=== PATIENT | male | born 1955 | race African-American/Black ===

== ENCOUNTER 2018-03-11 02:10 | Inpatient (IN) | payer BC, OTHER ==
[2018-03-11 02:31] LABS: ADD MAN DIFF? NO
[2018-03-11 02:32] LABS: ABNORMAL IP MESSAGE 1; BASOPHILS % 0.5 % (0.0-2.0); EOSINOPHILS # 0.1 10^3/ul (0.0-0.5); EOSINOPHILS % 0.8 % (0.0-7.0); HEMATOCRIT 41.1 % (42.0-52.0); HEMOGLOBIN 13.9 g/dl (14.0-18.0); LYMPHOCYTES # 3.2 10^3/ul (0.8-2.9); LYMPHOCYTES % 36.8 % (15.0-51.0); MEAN CORPUSCULAR HEMOGLOBIN 32.1 pg (29.0-33.0); MEAN CORPUSCULAR HGB CONC 33.8 g/dl (32.0-37.0); MEAN CORPUSCULAR VOLUME 94.9 fl (82.0-101.0); MEAN PLATELET VOLUME 12.3 fl (7.4-10.4); MONOCYTE # 0.4 10^3/ul (0.3-0.9); MONOCYTES % 4.4 % (0.0-11.0); NEUTROPHIL # 4.5 10^3/ul (1.6-7.5); NEUTROPHILS % 51.4 % (39.0-77.0); PLATELET COUNT 82 10^3/UL (140-415); POSITIVE DIFF @See below; RED BLOOD COUNT 4.33 10^6/ul (4.70-6.10); RED CELL DISTRIBUTION WIDTH 13.9 % (11.5-14.5)
[2018-03-11 02:32] LABS: WHITE BLOOD COUNT 8.7 10^3/ul (4.8-10.8)
[2018-03-11] MEDS: ASPIRIN 300 MG SUPP PR (02:34)
[2018-03-11] MEDS: AMIODARONE 150MG/D5W BOLUS 100 ML IV (02:34)
[2018-03-11 02:50] LABS: ANION GAP 23 (8-16); BLOOD UREA NITROGEN 19 mg/dl (7-20); CARBON DIOXIDE 21 mmol/L (21-31); CHLORIDE 105 mmol/L (97-110); CREATININE 1.29 mg/dl (0.61-1.24); GLUCOSE 195 mg/dl (70-220); POTASSIUM 4.6 mmol/L (3.5-5.1); SODIUM 144 mmol/L (135-144)
[2018-03-11 03:01] LABS: TROPONIN-I 0.014 ng/ml (0.00-0.12)
[2018-03-11 03:05] LABS: AADO2 Arterial 541.7 mmHg (7.0-24.0); Allen Test ACCEPTAB; Arterial Base Excess -3.7 mmol/L (-3.0-3); Arterial Blood Gas Oxygen Sat 97.2 mmHG (95.0-98.0); Arterial COHb 0.4 % (0.0-3.0); Arterial Fraction of Oxyhgb 96.5 % (93.0-99.0); Arterial HCO3 23.6 mmol/L (22.0-26.0); Arterial MetHb 0.3 % (0.0-1.5); Arterial Total Hemglobin 15.1 g/dl (12.0-18.0); Arterial pCO2 51.5 mmhg (35-45); MODE VENT - AC; Site Right Radial
[2018-03-11] MEDS: SODIUM CHLORIDE 0.9% 500 ML BAG IV* (03:16)
[2018-03-11 03:17] LABS: MAGNESIUM 2.2 mg/dl (1.7-2.5)
[2018-03-11 03:17] LABS: PHOSPHORUS 6.9 mg/dl (2.5-4.9)
[2018-03-11 03:32] LABS: INR 1.08; PARTIAL THROMBOPLASTIN TIME 22.1 Sec (25.0-35.0); PROTIME 14.1 Sec (11.9-14.9); PT RATIO 1.1
[2018-03-11] MEDS: VECURONIUM 100 MG in DEXTROSE 5% 100 ML IV ×2 (04:45→21:48)
[2018-03-11 04:49] LABS: ANISOCYTOSIS 1+ (0-0); BASOPHILS % (M) 1 % (0-2); EOSINOPHILS % (M) 1 % (0-7); ERYTHROBLAST% (NRBC) (M) 2 % (0-0); GIANT THROMBO% (M) 1 % (0-0); LYMPHOCYTES #M 2.6 10^3/ul (0.8-2.9); LYMPHOCYTES % (M) 30 % (15-51); METAMYELOCYTES %M 1 % (0-0); MYELOCYTES #M 0.4 10^3/ul (0.0-0.0); MYELOCYTES % (M) 5 % (0-0); PLATELET ESTIMATE NORMAL; POIKILOCYTOSIS 2+ (0-0); SEGMENTED NEUTROPHILS (M) % 62 % (39-77)
[2018-03-11] MEDS: MIDAZOLAM (DRIP) 50 mg/50 mL 50 ML IV ×4 (04:50→20:50)
[2018-03-11] MEDS: FENTAnyl 50 MCG/ML VIAL IV (05:03)
[2018-03-11] MEDS: SOD CHLORIDE 0.9% 1,000 ML IV ×3 (05:52→19:23)
[2018-03-11 06:21] LABS: LACTIC ACID 1.9 mmol/L (0.5-2.0)
[2018-03-11] MEDS: SOD CHLORIDE 0.9% 100 ML (06:27)
[2018-03-11] MEDS: IOHEXOL 300MG/ML 150 ML BTL (06:27)
[2018-03-11] MEDS ORDERED: MIDAZOLAM (DRIP) 50 mg/50 mL 50 ML IV (06:30)
[2018-03-11] MEDS ORDERED: DEXTROSE 50% 50 ML SYRINGE IV (07:00)
[2018-03-11] MEDS ORDERED: AMIODARONE 150 MG INJ (07:00)
[2018-03-11] MEDS: ACCU-CHEK XX ×18 (07:42→23:44)
[2018-03-11] MEDS: INSULIN HUMAN REGULAR 100 UNIT in SOD CHLORIDE 0.9% 99 ML IV (08:27)
[2018-03-11] MEDS ORDERED: HEPARIN 1000 UNITS/ML 10 ML INJ IV (08:30)
[2018-03-11 08:43] LABS: AADO2 Arterial 283.7 mmHg (7.0-24.0); Allen Test ACCEPTAB; Arterial Base Excess -4.7 mmol/L (-3.0-3); Arterial Blood Gas Oxygen Sat 99.4 mmHG (95.0-98.0); Arterial COHb 0.3 % (0.0-3.0); Arterial Fraction of Oxyhgb 98.9 % (93.0-99.0); Arterial HCO3 20.8 mmol/L (22.0-26.0); Arterial MetHb 0.2 % (0.0-1.5); Arterial Total Hemglobin 16.1 g/dl (12.0-18.0); MODE VENT - AC; Site Right Radial; Temperature 34.6 C
[2018-03-11] MEDS ORDERED: ACETAMINOPHEN 650 MG SUPP PR (09:00)
[2018-03-11] MEDS ORDERED: MEPERIDINE 25 MG INJ IV (09:00)
[2018-03-11] MEDS: PANTOPRAZOLE 40 MG INJ IV (09:16)
[2018-03-11 10:12] LABS: ADD MAN DIFF? NO
[2018-03-11 10:19] LABS: BASOPHILS % 0.2 % (0.0-2.0); EOSINOPHILS # 0.1 10^3/ul (0.0-0.5); EOSINOPHILS % 0.3 % (0.0-7.0); HEMATOCRIT 47.5 % (42.0-52.0); HEMOGLOBIN 15.7 g/dl (14.0-18.0); LYMPHOCYTES # 0.9 10^3/ul (0.8-2.9); LYMPHOCYTES % 5.1 % (15.0-51.0); MEAN CORPUSCULAR HEMOGLOBIN 31.7 pg (29.0-33.0); MEAN CORPUSCULAR HGB CONC 33.1 g/dl (32.0-37.0); MEAN CORPUSCULAR VOLUME 95.8 fl (82.0-101.0); MEAN PLATELET VOLUME 11.4 fl (7.4-10.4); MONOCYTE # 0.9 10^3/ul (0.3-0.9); NEUTROPHIL # 15.4 10^3/ul (1.6-7.5); PLATELET COUNT 273 10^3/UL (140-415); RED BLOOD COUNT 4.96 10^6/ul (4.70-6.10)
[2018-03-11 10:19] LABS: WHITE BLOOD COUNT 17.5 10^3/ul (4.8-10.8)
[2018-03-11] MEDS: FENTAnyl (DRIP) 1000 mcg/100mL 100 ML IV (10:31)
[2018-03-11 10:36] LABS: AMYLASE 56 U/L (11-123); ANION GAP 17 (8-16); BLOOD UREA NITROGEN 28 mg/dl (7-20); CALCIUM 9.6 mg/dl (8.4-10.2); CARBON DIOXIDE 26 mmol/L (21-31); CHLORIDE 109 mmol/L (97-110); GLUCOSE 173 mg/dl (70-220); LIPASE 53 U/L (23-300); MAGNESIUM 2.2 mg/dl (1.7-2.5); PHOSPHORUS 2.5 mg/dl (2.5-4.9); POTASSIUM 4.8 mmol/L (3.5-5.1); SODIUM 147 mmol/L (135-144)
[2018-03-11 10:40] LABS: INR 1.09; PROTIME 14.2 Sec (11.9-14.9); PT RATIO 1.1
[2018-03-11 10:41] LABS: CREATINE KINASE 307 IU/L (23-200); PARTIAL THROMBOPLASTIN TIME 27.1 Sec (25.0-35.0)
[2018-03-11 10:53] LABS: CK INDEX 2.9
[2018-03-11 10:59] LABS: CK-MB 8.75 ng/ml (0.0-2.4)
[2018-03-11] MEDS: HEPARIN 1000 UNITS/ML 10 ML INJ IV (11:31)
[2018-03-11] MEDS: HEPARIN 25000 UNITS/250 ML 250 ML IV (11:31)
[2018-03-11 14:22] LABS: LACTIC ACID 1.8 mmol/L (0.5-2.0)
[2018-03-11 14:24] LABS: CREATINE KINASE 321 IU/L (23-200)
[2018-03-11 14:35] LABS: CK INDEX 4.2
[2018-03-11 14:37] LABS: TROPONIN-I 0.994 ng/ml (0.00-0.12)
[2018-03-11 14:59] LABS: AADO2 Arterial 167.1 mmHg (7.0-24.0); Allen Test ACCEPTAB; Arterial Base Excess -5.1 mmol/L (-3.0-3); Arterial Blood Gas Oxygen Sat 98.9 mmHG (95.0-98.0); Arterial COHb 0.3 % (0.0-3.0); Arterial Fraction of Oxyhgb 98.4 % (93.0-99.0); Arterial HCO3 19.3 mmol/L (22.0-26.0); Arterial MetHb 0.2 % (0.0-1.5); Arterial Total Hemglobin 15.9 g/dl (12.0-18.0); MODE VENT - AC; Site Right Radial
[2018-03-11] MEDS: ARTIFICIAL TEARS 15 ML OPH BOTH EYES ×3 (15:36→23:46)
[2018-03-11] MEDS: OCULAR LUBRICANT 3.5 GM OPH OINT BOTH EYES ×3 (15:36→23:46)
[2018-03-11 15:52] LABS: ADD MAN DIFF? NO
[2018-03-11 15:54] LABS: BASOPHILS % 0.1 % (0.0-2.0); EOSINOPHILS % 0.3 % (0.0-7.0); HEMATOCRIT 44.8 % (42.0-52.0); HEMOGLOBIN 15.3 g/dl (14.0-18.0); LYMPHOCYTES # 0.9 10^3/ul (0.8-2.9); LYMPHOCYTES % 6.1 % (15.0-51.0); MEAN CORPUSCULAR HEMOGLOBIN 31.9 pg (29.0-33.0); MEAN CORPUSCULAR HGB CONC 34.2 g/dl (32.0-37.0); MEAN CORPUSCULAR VOLUME 93.5 fl (82.0-101.0); MONOCYTE # 0.6 10^3/ul (0.3-0.9); MONOCYTES % 3.8 % (0.0-11.0); NEUTROPHIL # 13.4 10^3/ul (1.6-7.5); NEUTROPHILS % 89.1 % (39.0-77.0); PLATELET COUNT 226 10^3/UL (140-415); RED BLOOD COUNT 4.79 10^6/ul (4.70-6.10)
[2018-03-11 16:14] LABS: AMYLASE 61 U/L (11-123); ANION GAP 17 (8-16); BLOOD UREA NITROGEN 27 mg/dl (7-20); CALCIUM 9.2 mg/dl (8.4-10.2); CARBON DIOXIDE 23 mmol/L (21-31); CHLORIDE 109 mmol/L (97-110); CREATININE 1.23 mg/dl (0.61-1.24); GLUCOSE 135 mg/dl (70-220); LIPASE 68 U/L (23-300); POTASSIUM 3.8 mmol/L (3.5-5.1); SODIUM 145 mmol/L (135-144)
[2018-03-11 16:19] LABS: INR 1.16; PT RATIO 1.2
[2018-03-11 16:51] LABS: PARTIAL THROMBOPLASTIN TIME 90.8 Sec (25.0-35.0)
[2018-03-11] MEDS: DEXTROSE 5%-0.45% NACL 1,000 ML IV (19:48)
[2018-03-11] MEDS ORDERED: PROPOFOL 100 ML (20:36)
[2018-03-11 20:48] LABS: AADO2 Arterial 84.9 mmHg (7.0-24.0); Allen Test ACCEPTAB; Arterial Base Excess -3.5 mmol/L (-3.0-3); Arterial Blood Gas Oxygen Sat 96.8 mmHG (95.0-98.0); Arterial COHb 0.4 % (0.0-3.0); Arterial Fraction of Oxyhgb 96.2 % (93.0-99.0); Arterial HCO3 22.8 mmol/L (22.0-26.0); Arterial MetHb 0.2 % (0.0-1.5); Arterial Total Hemglobin 16.3 g/dl (12.0-18.0); Arterial pCO2 40.3 mmhg (35-45); MODE VENT - AC/VC+; Site Right Radial; Temperature 34.2 C
[2018-03-11] MEDS: PROPOFOL 100 ML IV (20:51)
[2018-03-11] MEDS: MEPERIDINE 25 MG INJ IV (21:30)
[2018-03-11] MEDS: NORepinephrine 8MG/250 ML (PMX 250 ML IV (21:33)
[2018-03-11 21:38] LABS: ADD MAN DIFF? NO
[2018-03-11 21:41] LABS: BASOPHILS % 0.1 % (0.0-2.0); EOSINOPHILS % 0.1 % (0.0-7.0); HEMATOCRIT 43.2 % (42.0-52.0); HEMOGLOBIN 14.8 g/dl (14.0-18.0); LYMPHOCYTES # 0.6 10^3/ul (0.8-2.9); LYMPHOCYTES % 4.7 % (15.0-51.0); MEAN CORPUSCULAR HEMOGLOBIN 32.2 pg (29.0-33.0); MEAN CORPUSCULAR HGB CONC 34.3 g/dl (32.0-37.0); MEAN CORPUSCULAR VOLUME 93.9 fl (82.0-101.0); MEAN PLATELET VOLUME 11.1 fl (7.4-10.4); MONOCYTE # 0.4 10^3/ul (0.3-0.9); MONOCYTES % 2.7 % (0.0-11.0); NEUTROPHIL # 12.5 10^3/ul (1.6-7.5); PLATELET COUNT 205 10^3/UL (140-415); RED CELL DISTRIBUTION WIDTH 14.1 % (11.5-14.5)
[2018-03-11 21:41] LABS: WHITE BLOOD COUNT 13.6 10^3/ul (4.8-10.8)
[2018-03-11 22:01] LABS: AMYLASE 53 U/L (11-123); ANION GAP 13 (8-16); BLOOD UREA NITROGEN 27 mg/dl (7-20); CALCIUM 8.9 mg/dl (8.4-10.2); CARBON DIOXIDE 27 mmol/L (21-31); CHLORIDE 109 mmol/L (97-110); CREATININE 1.08 mg/dl (0.61-1.24); GLUCOSE 147 mg/dl (70-220); INR 1.07; LIPASE 23 U/L (23-300); MAGNESIUM 1.9 mg/dl (1.7-2.5); PHOSPHORUS 3.9 mg/dl (2.5-4.9); POTASSIUM 4.1 mmol/L (3.5-5.1); PT RATIO 1.1; SODIUM 145 mmol/L (135-144)
[2018-03-11 22:02] LABS: PARTIAL THROMBOPLASTIN TIME 26.1 Sec (25.0-35.0)
[2018-03-12] MEDS: FENTAnyl (DRIP) 1000 mcg/100mL 100 ML IV ×3 (00:52→22:12)
[2018-03-12] MEDS: ACCU-CHEK XX ×23 (00:59→23:41)
[2018-03-12 01:05] LABS: CREATINE KINASE 254 IU/L (23-200)
[2018-03-12 01:18] LABS: CK INDEX 5.6
[2018-03-12 01:19] LABS: TROPONIN-I 0.367 ng/ml (0.00-0.12)
[2018-03-12] MEDS: PROPOFOL 100 ML IV ×2 (02:18→21:25)
[2018-03-12] MEDS: MIDAZOLAM (DRIP) 50 mg/50 mL 50 ML IV ×5 (02:35→19:21)
[2018-03-12 03:29] LABS: AADO2 Arterial 95.3 mmHg (7.0-24.0); Allen Test ACCEPTAB; Arterial Base Excess -1.8 mmol/L (-3.0-3); Arterial Blood Gas Oxygen Sat 97.4 mmHG (95.0-98.0); Arterial COHb 0.4 % (0.0-3.0); Arterial Fraction of Oxyhgb 96.9 % (93.0-99.0); Arterial HCO3 23.7 mmol/L (22.0-26.0); Arterial MetHb 0.1 % (0.0-1.5); Arterial Total Hemglobin 15.2 g/dl (12.0-18.0); MODE VENT - AC/VC+; Site Right Radial; Temperature 32.9 C
[2018-03-12 04:01] LABS: ADD MAN DIFF? NO
[2018-03-12 04:09] LABS: WHITE BLOOD COUNT 17.3 10^3/ul (4.8-10.8)
[2018-03-12 04:09] LABS: BASOPHILS % 0.2 % (0.0-2.0); EOSINOPHILS # 0.2 10^3/ul (0.0-0.5); EOSINOPHILS % 1.1 % (0.0-7.0); HEMATOCRIT 41.7 % (42.0-52.0); HEMOGLOBIN 14.4 g/dl (14.0-18.0); LYMPHOCYTES # 1.3 10^3/ul (0.8-2.9); LYMPHOCYTES % 7.7 % (15.0-51.0); MEAN CORPUSCULAR HEMOGLOBIN 32.3 pg (29.0-33.0); MEAN CORPUSCULAR HGB CONC 34.5 g/dl (32.0-37.0); MEAN CORPUSCULAR VOLUME 93.5 fl (82.0-101.0); MEAN PLATELET VOLUME 11.2 fl (7.4-10.4); MONOCYTE # 0.7 10^3/ul (0.3-0.9); NEUTROPHILS % 86.4 % (39.0-77.0); PLATELET COUNT 238 10^3/UL (140-415); RED BLOOD COUNT 4.46 10^6/ul (4.70-6.10)
[2018-03-12 04:27] LABS: INR 1.09; PROTIME 14.3 Sec (11.9-14.9); PT RATIO 1.1
[2018-03-12 04:28] LABS: PARTIAL THROMBOPLASTIN TIME 27.3 Sec (25.0-35.0)
[2018-03-12 04:36] LABS: CREATINE KINASE 249 IU/L (23-200)
[2018-03-12 04:46] LABS: CK INDEX 6.1
[2018-03-12 04:50] LABS: TROPONIN-I 0.328 ng/ml (0.00-0.12)
[2018-03-12] MEDS: MEPERIDINE 25 MG INJ IV (04:50)
[2018-03-12 05:00] LABS: CHOL/HDL RATIO 1.6 RATIO; HDL CHOLESTEROL 56 mg/dl (30-78); LDL CHOLESTEROL,CALCULATED 13 mg/dl; TRIGLYCERIDES 111 mg/dl (0-149)
[2018-03-12 05:00] LABS: CHOLESTEROL 91 mg/dl (100-200)
[2018-03-12 05:01] LABS: ALANINE AMINOTRANSFERASE 105 IU/L (13-69); ALBUMIN 3.4 g/dl (3.3-4.9); ALBUMIN/GLOBULIN RATIO 1.21; ALKALINE PHOSPHATASE 93 IU/L (42-121); ANION GAP 13 (8-16); ASPARTATE AMINO TRANSFERASE 72 IU/L (15-46); BILIRUBIN,INDIRECT 0.8 mg/dl (0-1.1); BILIRUBIN,TOTAL 0.8 mg/dl (0.2-1.3); BLOOD UREA NITROGEN 23 mg/dl (7-20); CALCIUM 9.2 mg/dl (8.4-10.2); CARBON DIOXIDE 25 mmol/L (21-31); CHLORIDE 111 mmol/L (97-110); CREATININE 0.99 mg/dl (0.61-1.24); GLUCOSE 141 mg/dl (70-220); POTASSIUM 4.1 mmol/L (3.5-5.1); SODIUM 145 mmol/L (135-144); TOTAL PROTEIN 6.2 g/dl (6.1-8.1)
[2018-03-12 05:02] LABS: AMYLASE 32 U/L (11-123); LIPASE 22 U/L (23-300)
[2018-03-12 05:02] LABS: PHOSPHORUS 3.7 mg/dl (2.5-4.9)
[2018-03-12 05:07] LABS: B-TYPE NATRIURETIC PEPTIDE 390 PG/ML (0-125)
[2018-03-12 05:15] LABS: FREE T4 (FREE THYROXINE) 1.39 ng/dl (0.78-2.44)
[2018-03-12] MEDS: SOD CHLORIDE 0.9% 500 ML IV (05:25)
[2018-03-12 05:29] LABS: THYROID STIMULATING HORMONE 0.287 MIU/L (0.465-4.680)
[2018-03-12] MEDS: OCULAR LUBRICANT 3.5 GM OPH OINT BOTH EYES ×3 (06:16→17:30)
[2018-03-12] MEDS: PANTOPRAZOLE 40 MG INJ IV (06:16)
[2018-03-12] MEDS: ARTIFICIAL TEARS 15 ML OPH BOTH EYES ×3 (06:17→17:30)
[2018-03-12] MEDS: ACETAMINOPHEN 650 MG SUPP PR ×3 (09:00→21:25)
[2018-03-12] MEDS: ACETAMINOPHEN 650MG/20.3ML CUP PO ×3 (09:00→21:25)
[2018-03-12 09:21] LABS: AADO2 Arterial 86.2 mmHg (7.0-24.0); Allen Test ACCEPTAB; Arterial Base Excess -1.5 mmol/L (-3.0-3); Arterial Blood Gas Oxygen Sat 97.9 mmHG (95.0-98.0); Arterial COHb 0.8 % (0.0-3.0); Arterial HCO3 23.7 mmol/L (22.0-26.0); Arterial MetHb 0.1 % (0.0-1.5); Arterial Total Hemglobin 15.5 g/dl (12.0-18.0); Arterial pCO2 35.8 mmhg (35-45); MODE VENT - AC; Site Left Radial; Temperature 33.4 C
[2018-03-12] MEDS ORDERED: NORepinephrine 8MG/250 ML (PMX 250 ML IV ×2 (09:30)
[2018-03-12] MEDS: ASPIRIN 300 MG SUPP PR (09:53)
[2018-03-12] MEDS: DEXTROSE 5%-0.45% NACL 1,000 ML IV (09:55)
[2018-03-12] MEDS: ENOXAPARIN 40 MG/0.4 ML SYG SC (11:35)
[2018-03-12 11:53] LABS: ADD MAN DIFF? NO
[2018-03-12 11:55] LABS: WHITE BLOOD COUNT 14.2 10^3/ul (4.8-10.8)
[2018-03-12 11:55] LABS: BASOPHILS % 0.2 % (0.0-2.0); EOSINOPHILS # 0.4 10^3/ul (0.0-0.5); EOSINOPHILS % 3.1 % (0.0-7.0); HEMATOCRIT 41.9 % (42.0-52.0); HEMOGLOBIN 14.2 g/dl (14.0-18.0); LYMPHOCYTES # 1.4 10^3/ul (0.8-2.9); LYMPHOCYTES % 10.1 % (15.0-51.0); MEAN CORPUSCULAR HEMOGLOBIN 31.9 pg (29.0-33.0); MEAN CORPUSCULAR HGB CONC 33.9 g/dl (32.0-37.0); MEAN CORPUSCULAR VOLUME 94.2 fl (82.0-101.0); MEAN PLATELET VOLUME 11.1 fl (7.4-10.4); MONOCYTE # 0.6 10^3/ul (0.3-0.9); MONOCYTES % 4.1 % (0.0-11.0); NEUTROPHIL # 11.6 10^3/ul (1.6-7.5); NEUTROPHILS % 81.9 % (39.0-77.0); PLATELET COUNT 203 10^3/UL (140-415); RED BLOOD COUNT 4.45 10^6/ul (4.70-6.10); RED CELL DISTRIBUTION WIDTH 14.3 % (11.5-14.5)
[2018-03-12 12:13] LABS: CREATINE KINASE 209 IU/L (23-200)
[2018-03-12 12:27] LABS: CK INDEX 6.4
[2018-03-12 12:34] LABS: TROPONIN-I 0.218 ng/ml (0.00-0.12)
[2018-03-12 12:50] LABS: INR 1.16; PT RATIO 1.2
[2018-03-12 12:51] LABS: PARTIAL THROMBOPLASTIN TIME 27.9 Sec (25.0-35.0)
[2018-03-12 13:27] LABS: AMYLASE 42 U/L (11-123); ANION GAP 14 (8-16); BLOOD UREA NITROGEN 22 mg/dl (7-20); CALCIUM 8.8 mg/dl (8.4-10.2); CARBON DIOXIDE 25 mmol/L (21-31); CHLORIDE 109 mmol/L (97-110); CREATININE 1.04 mg/dl (0.61-1.24); GLUCOSE 134 mg/dl (70-220); LIPASE 21 U/L (23-300); PHOSPHORUS 3.3 mg/dl (2.5-4.9); SODIUM 144 mmol/L (135-144)
[2018-03-12 14:15] LABS: AADO2 Arterial 85.6 mmHg (7.0-24.0); Allen Test ACCEPTAB; Arterial Base Excess -1.6 mmol/L (-3.0-3); Arterial Blood Gas Oxygen Sat 97.8 mmHG (95.0-98.0); Arterial COHb 0.5 % (0.0-3.0); Arterial Fraction of Oxyhgb 97.2 % (93.0-99.0); Arterial HCO3 23.6 mmol/L (22.0-26.0); Arterial MetHb 0.1 % (0.0-1.5); Arterial Total Hemglobin 14.6 g/dl (12.0-18.0); Arterial pCO2 34.8 mmhg (35-45); MODE VENT - AC; Site Left Radial
[2018-03-12 17:39] LABS: ADD MAN DIFF? NO
[2018-03-12] MEDS: INSULIN HUMAN REGULAR 100 UNIT in SOD CHLORIDE 0.9% 99 ML IV (17:40)
[2018-03-12 17:41] LABS: BASOPHILS % 0.2 % (0.0-2.0); EOSINOPHILS # 0.4 10^3/ul (0.0-0.5); EOSINOPHILS % 3.6 % (0.0-7.0); HEMATOCRIT 39.8 % (42.0-52.0); HEMOGLOBIN 13.4 g/dl (14.0-18.0); LYMPHOCYTES # 1.3 10^3/ul (0.8-2.9); LYMPHOCYTES % 10.9 % (15.0-51.0); MEAN CORPUSCULAR HEMOGLOBIN 31.8 pg (29.0-33.0); MEAN CORPUSCULAR HGB CONC 33.7 g/dl (32.0-37.0); MEAN CORPUSCULAR VOLUME 94.3 fl (82.0-101.0); MEAN PLATELET VOLUME 10.6 fl (7.4-10.4); MONOCYTE # 0.4 10^3/ul (0.3-0.9); MONOCYTES % 3.7 % (0.0-11.0); NEUTROPHIL # 9.6 10^3/ul (1.6-7.5); NEUTROPHILS % 80.8 % (39.0-77.0); PLATELET COUNT 198 10^3/UL (140-415); RED BLOOD COUNT 4.22 10^6/ul (4.70-6.10); RED CELL DISTRIBUTION WIDTH 14.4 % (11.5-14.5)
[2018-03-12 17:41] LABS: WHITE BLOOD COUNT 11.9 10^3/ul (4.8-10.8)
[2018-03-12 18:15] LABS: CREATINE KINASE 198 IU/L (23-200); INR 1.14; PROTIME 14.8 Sec (11.9-14.9); PT RATIO 1.2
[2018-03-12 18:16] LABS: PARTIAL THROMBOPLASTIN TIME 34.4 Sec (25.0-35.0)
[2018-03-12 18:17] LABS: AMYLASE 34 U/L (11-123); ANION GAP 9 (8-16); BLOOD UREA NITROGEN 20 mg/dl (7-20); CALCIUM 8.7 mg/dl (8.4-10.2); CARBON DIOXIDE 27 mmol/L (21-31); CHLORIDE 113 mmol/L (97-110); CREATININE 0.96 mg/dl (0.61-1.24); GLUCOSE 122 mg/dl (70-220); LIPASE 25 U/L (23-300); MAGNESIUM 1.9 mg/dl (1.7-2.5); PHOSPHORUS 3.6 mg/dl (2.5-4.9); POTASSIUM 3.7 mmol/L (3.5-5.1); SODIUM 145 mmol/L (135-144)
[2018-03-12 18:25] LABS: CK INDEX 5.6
[2018-03-12 18:27] LABS: TROPONIN-I 0.166 ng/ml (0.00-0.12)
[2018-03-12] MEDS: MAGNESIUM SULFATE 1 GM/D5W 100 ML IVPB (19:20)
[2018-03-12 20:43] LABS: AADO2 Arterial 84.7 mmHg (7.0-24.0); Allen Test ACCEPTAB; Arterial Base Excess -1.8 mmol/L (-3.0-3); Arterial Blood Gas Oxygen Sat 97.2 mmHG (95.0-98.0); Arterial COHb 0.6 % (0.0-3.0); Arterial Fraction of Oxyhgb 96.4 % (93.0-99.0); Arterial HCO3 23.3 mmol/L (22.0-26.0); Arterial MetHb 0.2 % (0.0-1.5); Arterial Total Hemglobin 14.6 g/dl (12.0-18.0); Arterial pCO2 37.6 mmhg (35-45); MODE VENT - AC; Site Right Radial; Temperature 35.1 C
[2018-03-12] MEDS: VECURONIUM 100 MG in DEXTROSE 5% 100 ML IV (21:34)
[2018-03-12 23:26] LABS: ADD MAN DIFF? NO
[2018-03-12 23:27] LABS: BASOPHILS % 0.1 % (0.0-2.0); EOSINOPHILS # 0.5 10^3/ul (0.0-0.5); EOSINOPHILS % 4.4 % (0.0-7.0); HEMATOCRIT 40.4 % (42.0-52.0); HEMOGLOBIN 13.8 g/dl (14.0-18.0); LYMPHOCYTES # 1.1 10^3/ul (0.8-2.9); LYMPHOCYTES % 10.4 % (15.0-51.0); MEAN CORPUSCULAR HEMOGLOBIN 32.3 pg (29.0-33.0); MEAN CORPUSCULAR HGB CONC 34.2 g/dl (32.0-37.0); MEAN CORPUSCULAR VOLUME 94.6 fl (82.0-101.0); MEAN PLATELET VOLUME 11.3 fl (7.4-10.4); MONOCYTE # 0.5 10^3/ul (0.3-0.9); MONOCYTES % 4.9 % (0.0-11.0); NEUTROPHIL # 8.5 10^3/ul (1.6-7.5); NEUTROPHILS % 79.5 % (39.0-77.0); PLATELET COUNT 202 10^3/UL (140-415); RED BLOOD COUNT 4.27 10^6/ul (4.70-6.10); RED CELL DISTRIBUTION WIDTH 14.6 % (11.5-14.5)
[2018-03-12 23:27] LABS: WHITE BLOOD COUNT 10.7 10^3/ul (4.8-10.8)
[2018-03-12 23:53] LABS: AMYLASE 48 U/L (11-123); ANION GAP 11 (8-16); BLOOD UREA NITROGEN 19 mg/dl (7-20); CALCIUM 8.6 mg/dl (8.4-10.2); CARBON DIOXIDE 28 mmol/L (21-31); CHLORIDE 111 mmol/L (97-110); CREATININE 0.99 mg/dl (0.61-1.24); GLUCOSE 114 mg/dl (70-220); LIPASE 25 U/L (23-300); MAGNESIUM 2.2 mg/dl (1.7-2.5); PHOSPHORUS 3.8 mg/dl (2.5-4.9); POTASSIUM 3.9 mmol/L (3.5-5.1); SODIUM 146 mmol/L (135-144)
[2018-03-12 23:58] LABS: INR 1.11; PARTIAL THROMBOPLASTIN TIME 30.9 Sec (25.0-35.0); PROTIME 14.5 Sec (11.9-14.9); PT RATIO 1.1
[2018-03-13 00:15] LABS: CREATINE KINASE 152 IU/L (23-200)
[2018-03-13] MEDS: ACCU-CHEK XX ×24 (00:21→23:00)
[2018-03-13] MEDS: ARTIFICIAL TEARS 15 ML OPH BOTH EYES ×4 (00:22→17:21)
[2018-03-13] MEDS: OCULAR LUBRICANT 3.5 GM OPH OINT BOTH EYES ×4 (00:22→17:21)
[2018-03-13 00:28] LABS: CK INDEX 6.1
[2018-03-13 00:29] LABS: CK-MB 9.26 ng/ml (0.0-2.4); TROPONIN-I 0.191 ng/ml (0.00-0.12)
[2018-03-13] MEDS: MIDAZOLAM (DRIP) 50 mg/50 mL 50 ML IV ×2 (00:45→06:06)
[2018-03-13] MEDS: DEXTROSE 5%-0.45% NACL 1,000 ML IV ×3 (01:07→22:31)
[2018-03-13] MEDS: DEXTROSE 50% 50 ML SYRINGE IV (02:01)
[2018-03-13] MEDS: ACETAMINOPHEN 650 MG SUPP PR ×4 (03:27→21:00)
[2018-03-13] MEDS: ACETAMINOPHEN 650MG/20.3ML CUP PO ×4 (03:27→20:50)
[2018-03-13 04:57] LABS: ADD MAN DIFF? NO
[2018-03-13] MEDS: PANTOPRAZOLE 40 MG INJ IV (05:00)
[2018-03-13 05:04] LABS: BASOPHILS % 0.2 % (0.0-2.0); EOSINOPHILS # 0.4 10^3/ul (0.0-0.5); EOSINOPHILS % 4.1 % (0.0-7.0); HEMATOCRIT 38.6 % (42.0-52.0); LYMPHOCYTES # 0.9 10^3/ul (0.8-2.9); LYMPHOCYTES % 9.1 % (15.0-51.0); MEAN CORPUSCULAR HEMOGLOBIN 32.1 pg (29.0-33.0); MEAN CORPUSCULAR HGB CONC 33.7 g/dl (32.0-37.0); MEAN CORPUSCULAR VOLUME 95.3 fl (82.0-101.0); MEAN PLATELET VOLUME 11.5 fl (7.4-10.4); MONOCYTE # 0.5 10^3/ul (0.3-0.9); MONOCYTES % 5.6 % (0.0-11.0); NEUTROPHIL # 7.6 10^3/ul (1.6-7.5); NEUTROPHILS % 80.4 % (39.0-77.0); PLATELET COUNT 176 10^3/UL (140-415); RED BLOOD COUNT 4.05 10^6/ul (4.70-6.10); RED CELL DISTRIBUTION WIDTH 14.6 % (11.5-14.5)
[2018-03-13 05:04] LABS: WHITE BLOOD COUNT 9.5 10^3/ul (4.8-10.8)
[2018-03-13 05:19] LABS: CREATINE KINASE 122 IU/L (23-200)
[2018-03-13 05:25] LABS: ALANINE AMINOTRANSFERASE 78 IU/L (13-69); ALBUMIN/GLOBULIN RATIO 1.03; ALKALINE PHOSPHATASE 79 IU/L (42-121); ANION GAP 12 (8-16); ASPARTATE AMINO TRANSFERASE 63 IU/L (15-46); BILIRUBIN,INDIRECT 0.7 mg/dl (0-1.1); BILIRUBIN,TOTAL 0.7 mg/dl (0.2-1.3); BLOOD UREA NITROGEN 17 mg/dl (7-20); CALCIUM 8.3 mg/dl (8.4-10.2); CARBON DIOXIDE 27 mmol/L (21-31); CHLORIDE 112 mmol/L (97-110); CREATININE 1.08 mg/dl (0.61-1.24); GLUCOSE 120 mg/dl (70-220); MAGNESIUM 2.1 mg/dl (1.7-2.5); POTASSIUM 3.9 mmol/L (3.5-5.1); SODIUM 147 mmol/L (135-144); TOTAL PROTEIN 5.9 g/dl (6.1-8.1)
[2018-03-13 05:31] LABS: B-TYPE NATRIURETIC PEPTIDE 91 PG/ML (0-125)
[2018-03-13 05:32] LABS: CK INDEX 5.6
[2018-03-13 05:37] LABS: INR 1.11; PROTIME 14.5 Sec (11.9-14.9); PT RATIO 1.1
[2018-03-13 05:38] LABS: CK-MB 6.82 ng/ml (0.0-2.4); TROPONIN-I 0.203 ng/ml (0.00-0.12)
[2018-03-13] MEDS: ASPIRIN 300 MG SUPP PR (08:28)
[2018-03-13] MEDS: ENOXAPARIN 40 MG/0.4 ML SYG SC (08:29)
[2018-03-13] MEDS: DIGOXIN 500 MCG INJ IV ×2 (08:31→13:21)
[2018-03-13] MEDS: PROPOFOL 100 ML IV ×2 (09:00→21:00)
[2018-03-13] MEDS: FENTAnyl (DRIP) 1000 mcg/100mL 100 ML IV (09:59)
[2018-03-13] MEDS ORDERED: VANCOMYCIN IV PER PHARMACY XX (11:00)
[2018-03-13] MEDS: PIPER-TAZO 3.375 GM IV (PMX) 100 ML IVPB ×2 (11:21→17:22)
[2018-03-13] MEDS: VANCOMYCIN 2 GM in SOD CHLORIDE 0.9% 500 ML IVPB (12:30)
[2018-03-13 12:44] LABS: CREATINE KINASE 103 IU/L (23-200)
[2018-03-13 12:55] LABS: CK INDEX 3.7
[2018-03-13 13:01] LABS: CK-MB 3.76 ng/ml (0.0-2.4); TROPONIN-I 0.329 ng/ml (0.00-0.12)
[2018-03-13 18:19] LABS: CREATINE KINASE 130 IU/L (23-200)
[2018-03-13 18:31] LABS: CK INDEX 2.1
[2018-03-13 18:49] LABS: CK-MB 2.75 ng/ml (0.0-2.4)
[2018-03-13 18:51] LABS: TROPONIN-I 0.259 ng/ml (0.00-0.12)
[2018-03-13] MEDS: ATORVASTATIN 40 MG TAB NGT (20:50)
[2018-03-13] MEDS: INSULIN HUMAN REGULAR 100 UNIT in SOD CHLORIDE 0.9% 99 ML IV (21:04)
[2018-03-14] MEDS: PIPER-TAZO 3.375 GM IV (PMX) 100 ML IVPB ×4 (00:10→17:34)
[2018-03-14] MEDS: ARTIFICIAL TEARS 15 ML OPH BOTH EYES ×2 (00:10→05:38)
[2018-03-14] MEDS: OCULAR LUBRICANT 3.5 GM OPH OINT BOTH EYES ×2 (00:10→05:37)
[2018-03-14] MEDS: ACCU-CHEK XX ×10 (00:11→09:57)
[2018-03-14] MEDS: VANCOMYCIN 1.75 GM in SOD CHLORIDE 0.9% 500 ML IVPB (01:04)
[2018-03-14] MEDS: MEPERIDINE 25 MG INJ IV (01:33)
[2018-03-14] MEDS: ACETAMINOPHEN 650 MG SUPP PR ×2 (03:00→09:00)
[2018-03-14] MEDS: ACETAMINOPHEN 650MG/20.3ML CUP PO ×3 (03:13→09:41)
[2018-03-14 05:28] LABS: ADD MAN DIFF? NO
[2018-03-14 05:35] LABS: WHITE BLOOD COUNT 10.3 10^3/ul (4.8-10.8)
[2018-03-14 05:35] LABS: BASOPHILS % 0.2 % (0.0-2.0); EOSINOPHILS # 0.2 10^3/ul (0.0-0.5); EOSINOPHILS % 1.5 % (0.0-7.0); HEMOGLOBIN 12.8 g/dl (14.0-18.0); LYMPHOCYTES # 1.2 10^3/ul (0.8-2.9); LYMPHOCYTES % 11.2 % (15.0-51.0); MEAN CORPUSCULAR HEMOGLOBIN 31.7 pg (29.0-33.0); MEAN CORPUSCULAR HGB CONC 32.8 g/dl (32.0-37.0); MEAN CORPUSCULAR VOLUME 96.5 fl (82.0-101.0); MONOCYTE # 0.7 10^3/ul (0.3-0.9); NEUTROPHIL # 8.2 10^3/ul (1.6-7.5); PLATELET COUNT 196 10^3/UL (140-415); RED BLOOD COUNT 4.04 10^6/ul (4.70-6.10); RED CELL DISTRIBUTION WIDTH 14.8 % (11.5-14.5)
[2018-03-14] MEDS: PANTOPRAZOLE 40 MG INJ IV (05:38)
[2018-03-14 05:55] LABS: ALANINE AMINOTRANSFERASE 61 IU/L (13-69); ALBUMIN 3.1 g/dl (3.3-4.9); ALKALINE PHOSPHATASE 91 IU/L (42-121); ANION GAP 14 (8-16); ASPARTATE AMINO TRANSFERASE 66 IU/L (15-46); BILIRUBIN,INDIRECT 1.1 mg/dl (0-1.1); BILIRUBIN,TOTAL 1.1 mg/dl (0.2-1.3); BLOOD UREA NITROGEN 24 mg/dl (7-20); CALCIUM 8.3 mg/dl (8.4-10.2); CARBON DIOXIDE 26 mmol/L (21-31); CHLORIDE 111 mmol/L (97-110); CREATININE 1.83 mg/dl (0.61-1.24); GLUCOSE 105 mg/dl (70-220); MAGNESIUM 1.9 mg/dl (1.7-2.5); POTASSIUM 3.8 mmol/L (3.5-5.1); SODIUM 147 mmol/L (135-144); TOTAL PROTEIN 6.2 g/dl (6.1-8.1)
[2018-03-14 06:01] LABS: B-TYPE NATRIURETIC PEPTIDE 97 PG/ML (0-125)
[2018-03-14] MEDS: LORAZEPAM 2 MG INJ IM (06:34)
[2018-03-14] MEDS: DEXTROSE 5%-0.45% NACL 1,000 ML IV ×3 (07:08→19:00)
[2018-03-14] MEDS: LEVETIRACETAM 1000 MG (PMX) 100 ML IVPB (07:08)
[2018-03-14 08:03] LABS: ADD UMIC YES; UR ASCORBIC ACID NEGATIVE (NEGATIVE); UR BACTERIA FEW /HPF (NONE SEEN); UR BILIRUBIN (Dip) NEGATIVE (NEGATIVE); UR BLOOD (Dip) 3+ mg/dL (NEGATIVE); UR CLARITY TURBID (CLEAR); UR COLOR AMBER (YELLOW); UR GLUCOSE (Dip) NEGATIVE (NEGATIVE); UR KETONES (Dip) NEGATIVE (NEGATIVE); UR LEUKOCYTE ESTERASE (Dip) 2+ Leu/ul (NEGATIVE); UR NITRITE (Dip) NEGATIVE (NEGATIVE); UR RBC > 182 /HPF (0-5); UR SPECIFIC GRAVITY (Dip) 1.032 (1.003-1.030); UR SQUAMOUS EPITHELIAL CELL FEW /HPF (FEW); UR TOTAL PROTEIN (Dip) 2+ mg/dl (NEGATIVE); UR UROBILINOGEN (Dip) NEGATIVE (NEGATIVE); UR WBC 146 /HPF (0-5)
[2018-03-14] MEDS: LORAZEPAM 2 MG INJ IV ×4 (08:27→17:51)
[2018-03-14] MEDS: PROPOFOL 100 ML IV ×5 (09:41→20:31)
[2018-03-14] MEDS: ASPIRIN 300 MG SUPP PR (09:41)
[2018-03-14] MEDS: POTASSIUM CHLORIDE 50 ML IVPB ×2 (09:54→15:10)
[2018-03-14] MEDS: ENOXAPARIN 40 MG/0.4 ML SYG SC (09:57)
[2018-03-14] MEDS: MAGNESIUM SULFATE 2 GM/50 ML 50 ML IVPB (12:21)
[2018-03-14] MEDS: DIGOXIN 500 MCG INJ IV (12:44)
[2018-03-14] MEDS: FENTAnyl (DRIP) 1000 mcg/100mL 100 ML IV (13:54)
[2018-03-14] MEDS: PHENYTOIN 1,500 MG in SOD CHLORIDE 0.9% 150 ML IV (15:10)
[2018-03-14 18:15] LABS: PHENYTOIN (DILANTIN) 12.4 ug/ml (10.0-20.0)
[2018-03-14] MEDS: ATORVASTATIN 40 MG TAB NGT (20:31)
[2018-03-14] MEDS: LEVETIRACETAM 500 MG (PMX) 100 ML IVPB (20:31)
[2018-03-14] MEDS: PHENYTOIN 100 MG INJ IV (21:31)
[2018-03-15] MEDS: PIPER-TAZO 3.375 GM IV (PMX) 100 ML IVPB ×4 (00:16→17:28)
[2018-03-15] MEDS: PROPOFOL 100 ML IV ×8 (00:17→22:31)
[2018-03-15] MEDS: VANCOMYCIN 1.75 GM in SOD CHLORIDE 0.9% 500 ML IVPB (01:23)
[2018-03-15] MEDS: LORAZEPAM 2 MG INJ IV (01:27)
[2018-03-15] MEDS: FENTAnyl (DRIP) 1000 mcg/100mL 100 ML IV (03:25)
[2018-03-15] MEDS: PANTOPRAZOLE 40 MG INJ IV (05:10)
[2018-03-15 05:15] LABS: ADD MAN DIFF? NO
[2018-03-15 05:16] LABS: BASOPHIL # 0.1 10^3/ul (0.0-0.1); BASOPHILS % 0.5 % (0.0-2.0); EOSINOPHILS # 0.3 10^3/ul (0.0-0.5); EOSINOPHILS % 2.8 % (0.0-7.0); HEMATOCRIT 39.6 % (42.0-52.0); HEMOGLOBIN 12.8 g/dl (14.0-18.0); LYMPHOCYTES # 1.2 10^3/ul (0.8-2.9); LYMPHOCYTES % 11.4 % (15.0-51.0); MEAN CORPUSCULAR HEMOGLOBIN 31.7 pg (29.0-33.0); MEAN CORPUSCULAR HGB CONC 32.3 g/dl (32.0-37.0); MEAN PLATELET VOLUME 11.2 fl (7.4-10.4); MONOCYTE # 0.7 10^3/ul (0.3-0.9); MONOCYTES % 6.4 % (0.0-11.0); NEUTROPHIL # 8.1 10^3/ul (1.6-7.5); NEUTROPHILS % 77.8 % (39.0-77.0); PLATELET COUNT 183 10^3/UL (140-415); RED BLOOD COUNT 4.04 10^6/ul (4.70-6.10); RED CELL DISTRIBUTION WIDTH 14.7 % (11.5-14.5)
[2018-03-15 05:16] LABS: WHITE BLOOD COUNT 10.3 10^3/ul (4.8-10.8)
[2018-03-15 05:42] LABS: ANION GAP 14 (8-16); BLOOD UREA NITROGEN 13 mg/dl (7-20); CALCIUM 8.4 mg/dl (8.4-10.2); CARBON DIOXIDE 26 mmol/L (21-31); CHLORIDE 110 mmol/L (97-110); CREATININE 1.04 mg/dl (0.61-1.24); GLUCOSE 104 mg/dl (70-220); MAGNESIUM 2.4 mg/dl (1.7-2.5); PHOSPHORUS 3.7 mg/dl (2.5-4.9); POTASSIUM 4.7 mmol/L (3.5-5.1); SODIUM 145 mmol/L (135-144)
[2018-03-15] MEDS: PHENYTOIN 100 MG INJ IV ×3 (05:52→21:34)
[2018-03-15] MEDS: ASPIRIN 300 MG SUPP PR (08:18)
[2018-03-15] MEDS: LEVETIRACETAM 500 MG (PMX) 100 ML IVPB ×2 (08:18→21:34)
[2018-03-15] MEDS: ENOXAPARIN 40 MG/0.4 ML SYG SC (08:22)
[2018-03-15] MEDS: DEXTROSE 5%-0.45% NACL 1,000 ML IV ×2 (11:41→22:32)
[2018-03-15 12:17] LABS: PHENYTOIN (DILANTIN) 6.3 ug/ml (10.0-20.0)
[2018-03-15] MEDS: DIGOXIN 500 MCG INJ IV (12:52)
[2018-03-15] MEDS: ATORVASTATIN 40 MG TAB NGT (21:35)
[2018-03-16] MEDS: PIPER-TAZO 3.375 GM IV (PMX) 100 ML IVPB ×4 (00:12→17:47)
[2018-03-16] MEDS: FENTAnyl (DRIP) 1000 mcg/100mL 100 ML IV (00:17)
[2018-03-16 01:28] LABS: VANCOMYCIN,TROUGH < 5.0 ug/ml (10.0-20.0)
[2018-03-16] MEDS: PROPOFOL 100 ML IV ×5 (01:46→21:30)
[2018-03-16] MEDS: VANCOMYCIN 1.75 GM in SOD CHLORIDE 0.9% 500 ML IVPB ×3 (01:48→20:51)
[2018-03-16 04:56] LABS: ADD MAN DIFF? NO
[2018-03-16 04:58] LABS: BASOPHILS % 0.4 % (0.0-2.0); EOSINOPHILS # 0.2 10^3/ul (0.0-0.5); EOSINOPHILS % 2.3 % (0.0-7.0); HEMOGLOBIN 12.1 g/dl (14.0-18.0); LYMPHOCYTES # 0.8 10^3/ul (0.8-2.9); LYMPHOCYTES % 8.3 % (15.0-51.0); MEAN CORPUSCULAR HEMOGLOBIN 31.8 pg (29.0-33.0); MEAN CORPUSCULAR HGB CONC 32.7 g/dl (32.0-37.0); MEAN CORPUSCULAR VOLUME 97.4 fl (82.0-101.0); MEAN PLATELET VOLUME 11.4 fl (7.4-10.4); MONOCYTE # 0.7 10^3/ul (0.3-0.9); MONOCYTES % 7.4 % (0.0-11.0); NEUTROPHIL # 7.3 10^3/ul (1.6-7.5); NEUTROPHILS % 79.6 % (39.0-77.0); PLATELET COUNT 195 10^3/UL (140-415); RED CELL DISTRIBUTION WIDTH 14.5 % (11.5-14.5)
[2018-03-16 04:58] LABS: WHITE BLOOD COUNT 9.1 10^3/ul (4.8-10.8)
[2018-03-16 05:22] LABS: ANION GAP 9 (8-16); BLOOD UREA NITROGEN 12 mg/dl (7-20); CARBON DIOXIDE 29 mmol/L (21-31); CHLORIDE 110 mmol/L (97-110); CREATININE 0.82 mg/dl (0.61-1.24); GLUCOSE 117 mg/dl (70-220); PHOSPHORUS 3.8 mg/dl (2.5-4.9); POTASSIUM 3.9 mmol/L (3.5-5.1); SODIUM 144 mmol/L (135-144)
[2018-03-16] MEDS: PANTOPRAZOLE 40 MG INJ IV (05:50)
[2018-03-16] MEDS: PHENYTOIN 100 MG INJ IV ×2 (05:51→17:48)
[2018-03-16] MEDS: ENOXAPARIN 40 MG/0.4 ML SYG SC (08:51)
[2018-03-16] MEDS: LEVETIRACETAM 500 MG (PMX) 100 ML IVPB ×2 (08:51→20:48)
[2018-03-16] MEDS: ASPIRIN 300 MG SUPP PR (08:51)
[2018-03-16] MEDS: PHENYTOIN 1,000 MG in SOD CHLORIDE 0.9% 100 ML IV (10:32)
[2018-03-16] MEDS: DIGOXIN 500 MCG INJ IV (12:55)
[2018-03-16 13:12] LABS: PROCALCITONIN 0.77 ng/mL (<0.10)
[2018-03-16] MEDS: ATORVASTATIN 40 MG TAB NGT (20:49)
[2018-03-17] MEDS: PIPER-TAZO 3.375 GM IV (PMX) 100 ML IVPB ×5 (00:40→23:53)
[2018-03-17] MEDS: PROPOFOL 100 ML IV ×3 (00:40→07:14)
[2018-03-17] MEDS: DEXTROSE 5%-0.45% NACL 1,000 ML IV (03:56)
[2018-03-17] MEDS: PANTOPRAZOLE 40 MG INJ IV (06:01)
[2018-03-17] MEDS: PHENYTOIN 100 MG INJ IV ×2 (06:03→17:43)
[2018-03-17 06:33] LABS: ADD MAN DIFF? NO
[2018-03-17 06:34] LABS: BASOPHILS % 0.4 % (0.0-2.0); EOSINOPHILS # 0.2 10^3/ul (0.0-0.5); EOSINOPHILS % 2.7 % (0.0-7.0); HEMATOCRIT 33.6 % (42.0-52.0); HEMOGLOBIN 11.1 g/dl (14.0-18.0); LYMPHOCYTES # 0.9 10^3/ul (0.8-2.9); LYMPHOCYTES % 12.6 % (15.0-51.0); MEAN CORPUSCULAR HEMOGLOBIN 31.8 pg (29.0-33.0); MEAN CORPUSCULAR VOLUME 96.3 fl (82.0-101.0); MEAN PLATELET VOLUME 11.6 fl (7.4-10.4); MONOCYTE # 0.7 10^3/ul (0.3-0.9); MONOCYTES % 9.4 % (0.0-11.0); NEUTROPHIL # 5.3 10^3/ul (1.6-7.5); NEUTROPHILS % 70.7 % (39.0-77.0); PLATELET COUNT 182 10^3/UL (140-415); RED BLOOD COUNT 3.49 10^6/ul (4.70-6.10); RED CELL DISTRIBUTION WIDTH 14.6 % (11.5-14.5)
[2018-03-17 06:34] LABS: WHITE BLOOD COUNT 7.5 10^3/ul (4.8-10.8)
[2018-03-17 07:05] LABS: ALBUMIN 2.9 g/dl (3.3-4.9); ANION GAP 12 (8-16); BLOOD UREA NITROGEN 15 mg/dl (7-20); CALCIUM 8.4 mg/dl (8.4-10.2); CARBON DIOXIDE 29 mmol/L (21-31); CHLORIDE 108 mmol/L (97-110); CREATININE 1.01 mg/dl (0.61-1.24); GLUCOSE 133 mg/dl (70-220); MAGNESIUM 2.2 mg/dl (1.7-2.5); PHOSPHORUS 3.2 mg/dl (2.5-4.9); POTASSIUM 3.7 mmol/L (3.5-5.1); SODIUM 145 mmol/L (135-144)
[2018-03-17] MEDS ORDERED: PHENOBARBITAL 65 MG INJ IV (09:30)
[2018-03-17 09:33] LABS: PHENYTOIN (DILANTIN) 17.5 ug/ml (10.0-20.0)
[2018-03-17 09:34] LABS: DIGOXIN 0.5 ng/ml (1.0-2.0)
[2018-03-17] MEDS: PHENOBARBITAL IV (09:50)
[2018-03-17] MEDS: SOD CHLORIDE 0.9% IV (09:50)
[2018-03-17] MEDS: LEVETIRACETAM 500 MG (PMX) 100 ML IVPB (10:11)
[2018-03-17] MEDS: LORAZEPAM 2 MG INJ IV ×9 (10:13→14:59)
[2018-03-17] MEDS: ENOXAPARIN 40 MG/0.4 ML SYG SC (11:09)
[2018-03-17] MEDS: ASPIRIN 300 MG SUPP PR (11:10)
[2018-03-17] MEDS: VANCOMYCIN 1.75 GM in SOD CHLORIDE 0.9% 500 ML IVPB ×2 (11:15→22:12)
[2018-03-17] MEDS: DIGOXIN 500 MCG INJ IV (14:21)
[2018-03-17] MEDS: LEVETIRACETAM 1500 MG (PMX) 100 ML IVPB (20:33)
[2018-03-17] MEDS: ATORVASTATIN 40 MG TAB NGT (20:33)
[2018-03-17 21:53] LABS: VANCOMYCIN,TROUGH 12.1 ug/ml (10.0-20.0)
[2018-03-18 05:16] LABS: ABNORMAL IP MESSAGE 1; HEMATOCRIT 33.1 % (42.0-52.0); HEMOGLOBIN 10.9 g/dl (14.0-18.0); MEAN CORPUSCULAR HEMOGLOBIN 31.6 pg (29.0-33.0); MEAN CORPUSCULAR HGB CONC 32.9 g/dl (32.0-37.0); MEAN CORPUSCULAR VOLUME 95.9 fl (82.0-101.0); MEAN PLATELET VOLUME 11.2 fl (7.4-10.4); PLATELET COUNT 169 10^3/UL (140-415); POSITIVE DIFF @See below; RED BLOOD COUNT 3.45 10^6/ul (4.70-6.10); RED CELL DISTRIBUTION WIDTH 14.2 % (11.5-14.5)
[2018-03-18 05:16] LABS: WHITE BLOOD COUNT 6.9 10^3/ul (4.8-10.8)
[2018-03-18 05:36] LABS: ADD MAN DIFF? YES
[2018-03-18] MEDS: PHENYTOIN 100 MG INJ IV ×2 (05:37→18:13)
[2018-03-18] MEDS: PANTOPRAZOLE 40 MG INJ IV (05:37)
[2018-03-18 05:38] LABS: ANION GAP 12 (8-16); BLOOD UREA NITROGEN 15 mg/dl (7-20); CALCIUM 8.3 mg/dl (8.4-10.2); CARBON DIOXIDE 29 mmol/L (21-31); CHLORIDE 106 mmol/L (97-110); CREATININE 1.03 mg/dl (0.61-1.24); GLUCOSE 122 mg/dl (70-220); PHOSPHORUS 3.6 mg/dl (2.5-4.9); POTASSIUM 3.7 mmol/L (3.5-5.1); SODIUM 143 mmol/L (135-144)
[2018-03-18] MEDS: PIPER-TAZO 3.375 GM IV (PMX) 100 ML IVPB ×3 (05:38→18:13)
[2018-03-18] MEDS: LORAZEPAM 2 MG INJ IV ×8 (07:55→20:11)
[2018-03-18] MEDS: ACETAMINOPHEN 325 MG TAB PO (07:55)
[2018-03-18] MEDS: LEVETIRACETAM 1500 MG (PMX) 100 ML IVPB ×2 (08:00→20:18)
[2018-03-18] MEDS: ENOXAPARIN 40 MG/0.4 ML SYG SC (08:06)
[2018-03-18 08:10] LABS: BAND NEUTROPHILS #M 0.2 10^3/ul (0.0-0.6); BAND NEUTROPHILS % (M) 3 % (0-4); EOSINOPHILS % (M) 1 % (0-7); GIANT THROMBO% (M) 1 % (0-0); LYMPHOCYTES #M 1.3 10^3/ul (0.8-2.9); LYMPHOCYTES % (M) 20 % (15-51); MONOCYTE #M 1.1 10^3/ul (0.3-0.9); MONOCYTES % (M) 17 % (0-11); MYELOCYTES #M 0.1 10^3/ul (0.0-0.0); MYELOCYTES % (M) 2 % (0-0); PLATELET ESTIMATE NORMAL; POLYCHROMASIA 2+ (0-0); REACTIVE LYMPHOCYTES #M 0.2 10^3/ul (0.0-0.0); REACTIVE LYMPHOCYTES% (M) 3 % (0-0); SEG NEUT #M 3.7 10^3/ul (1.6-7.5); SEGMENTED NEUTROPHILS (M) % 54 % (39-77); SMUDGE%M 4 % (0-0)
[2018-03-18] MEDS: ASPIRIN 300 MG SUPP PR (08:12)
[2018-03-18] MEDS: PROPOFOL 100 ML IV ×2 (08:14→21:00)
[2018-03-18] MEDS: PHENOBARBITAL 65 MG INJ IV ×2 (09:52→20:22)
[2018-03-18] MEDS: VANCOMYCIN 1.75 GM in SOD CHLORIDE 0.9% 500 ML IVPB (09:57)
[2018-03-18 11:33] LABS: LACTIC ACID 0.8 mmol/L (0.5-2.0)
[2018-03-18] MEDS: DIGOXIN 500 MCG INJ IV (12:50)
[2018-03-18] MEDS: ACETAMINOPHEN 650MG/20.3ML CUP PO (16:01)
[2018-03-18] MEDS: LIDOCAINE 1% (MPF) 5 ML VIAL SC (17:00)
[2018-03-18] MEDS: SOD CHLORIDE 0.9% 100 ML (17:30)
[2018-03-18] MEDS: VANCOMYCIN 1.25 GM in SOD CHLORIDE 0.9% 250 ML IVPB (19:46)
[2018-03-18] MEDS: ATORVASTATIN 40 MG TAB NGT (20:22)
[2018-03-19] MEDS: LORAZEPAM 2 MG INJ IV ×4 (00:28→16:07)
[2018-03-19] MEDS: PIPER-TAZO 3.375 GM IV (PMX) 100 ML IVPB ×4 (00:28→17:19)
[2018-03-19] MEDS: VANCOMYCIN 1.25 GM in SOD CHLORIDE 0.9% 250 ML IVPB ×3 (03:45→20:29)
[2018-03-19 03:47] LABS: PHENOBARBITAL 21.4 mg/L (15.0-40.0)
[2018-03-19] MEDS: ACETAMINOPHEN 650MG/20.3ML CUP PO ×2 (04:44→16:02)
[2018-03-19 05:16] LABS: ADD MAN DIFF? NO
[2018-03-19 05:19] LABS: BASOPHIL # 0.1 10^3/ul (0.0-0.1); BASOPHILS % 0.8 % (0.0-2.0); EOSINOPHILS # 0.3 10^3/ul (0.0-0.5); EOSINOPHILS % 3.3 % (0.0-7.0); HEMOGLOBIN 10.8 g/dl (14.0-18.0); LYMPHOCYTES % 13.4 % (15.0-51.0); MEAN CORPUSCULAR HEMOGLOBIN 31.3 pg (29.0-33.0); MEAN CORPUSCULAR HGB CONC 32.7 g/dl (32.0-37.0); MEAN CORPUSCULAR VOLUME 95.7 fl (82.0-101.0); MEAN PLATELET VOLUME 10.7 fl (7.4-10.4); MONOCYTE # 0.8 10^3/ul (0.3-0.9); MONOCYTES % 9.9 % (0.0-11.0); NEUTROPHIL # 5.3 10^3/ul (1.6-7.5); PLATELET COUNT 168 10^3/UL (140-415); RED BLOOD COUNT 3.45 10^6/ul (4.70-6.10); RED CELL DISTRIBUTION WIDTH 13.9 % (11.5-14.5)
[2018-03-19 05:19] LABS: WHITE BLOOD COUNT 7.8 10^3/ul (4.8-10.8)
[2018-03-19 05:59] LABS: ANION GAP 10 (8-16); BLOOD UREA NITROGEN 16 mg/dl (7-20); CALCIUM 8.4 mg/dl (8.4-10.2); CARBON DIOXIDE 30 mmol/L (21-31); CHLORIDE 107 mmol/L (97-110); CREATININE 0.99 mg/dl (0.61-1.24); GLUCOSE 121 mg/dl (70-220); MAGNESIUM 2.1 mg/dl (1.7-2.5); PHOSPHORUS 3.7 mg/dl (2.5-4.9); POTASSIUM 3.7 mmol/L (3.5-5.1); SODIUM 143 mmol/L (135-144)
[2018-03-19] MEDS: PHENYTOIN 100 MG INJ IV ×2 (06:22→17:19)
[2018-03-19] MEDS: PANTOPRAZOLE 40 MG INJ IV (06:22)
[2018-03-19 08:04] LABS: DIGOXIN 0.4 ng/ml (1.0-2.0)
[2018-03-19] MEDS: PROPOFOL 100 ML IV ×2 (08:22→20:34)
[2018-03-19] MEDS: ASPIRIN 81 MG TAB NGT (08:33)
[2018-03-19] MEDS: LEVETIRACETAM 1500 MG (PMX) 100 ML IVPB ×2 (08:34→20:30)
[2018-03-19] MEDS: POTASSIUM CHLORIDE 20 MEQ POWDER FOR ORAL SOLN NGT (08:34)
[2018-03-19] MEDS: LISINOPRIL 5 MG TAB NGT (08:34)
[2018-03-19] MEDS: ENOXAPARIN 40 MG/0.4 ML SYG SC (08:39)
[2018-03-19] MEDS: PHENOBARBITAL 65 MG INJ IV ×2 (09:01→20:30)
[2018-03-19] MEDS: DIGOXIN 500 MCG INJ IV (13:14)
[2018-03-19 19:32] LABS: VANCOMYCIN,TROUGH 14.2 ug/ml (10.0-20.0)
[2018-03-19] MEDS: DOCUSATE SODIUM 10 MG/ML (10ML CUP) NGT (20:30)
[2018-03-19] MEDS: ATORVASTATIN 40 MG TAB NGT (20:30)
[2018-03-20] MEDS: LORAZEPAM 2 MG INJ IV ×4 (00:22→21:33)
[2018-03-20] MEDS: PIPER-TAZO 3.375 GM IV (PMX) 100 ML IVPB ×4 (00:22→18:44)
[2018-03-20] MEDS: VANCOMYCIN 1.25 GM in SOD CHLORIDE 0.9% 250 ML IVPB ×3 (03:02→19:49)
[2018-03-20 05:23] LABS: ADD MAN DIFF? NO
[2018-03-20 05:33] LABS: BASOPHIL # 0.1 10^3/ul (0.0-0.1); BASOPHILS % 0.7 % (0.0-2.0); EOSINOPHILS # 0.4 10^3/ul (0.0-0.5); EOSINOPHILS % 4.1 % (0.0-7.0); HEMATOCRIT 32.7 % (42.0-52.0); HEMOGLOBIN 10.7 g/dl (14.0-18.0); LYMPHOCYTES # 1.2 10^3/ul (0.8-2.9); LYMPHOCYTES % 13.5 % (15.0-51.0); MEAN CORPUSCULAR HEMOGLOBIN 31.3 pg (29.0-33.0); MEAN CORPUSCULAR HGB CONC 32.7 g/dl (32.0-37.0); MEAN CORPUSCULAR VOLUME 95.6 fl (82.0-101.0); MEAN PLATELET VOLUME 11.1 fl (7.4-10.4); MONOCYTE # 0.7 10^3/ul (0.3-0.9); MONOCYTES % 8.3 % (0.0-11.0); NEUTROPHILS % 69.2 % (39.0-77.0); PLATELET COUNT 189 10^3/UL (140-415); RED BLOOD COUNT 3.42 10^6/ul (4.70-6.10)
[2018-03-20 05:33] LABS: WHITE BLOOD COUNT 8.7 10^3/ul (4.8-10.8)
[2018-03-20 05:52] LABS: ANION GAP 9 (8-16); BLOOD UREA NITROGEN 18 mg/dl (7-20); CALCIUM 8.3 mg/dl (8.4-10.2); CARBON DIOXIDE 30 mmol/L (21-31); CHLORIDE 108 mmol/L (97-110); CREATININE 0.96 mg/dl (0.61-1.24); GLUCOSE 120 mg/dl (70-220); PHOSPHORUS 3.4 mg/dl (2.5-4.9); POTASSIUM 3.7 mmol/L (3.5-5.1); SODIUM 143 mmol/L (135-144)
[2018-03-20] MEDS: PANTOPRAZOLE 40 MG INJ IV (05:53)
[2018-03-20] MEDS: PHENYTOIN 100 MG INJ IV ×2 (05:53→18:43)
[2018-03-20 05:54] LABS: ALANINE AMINOTRANSFERASE 78 IU/L (13-69); ALBUMIN 2.8 g/dl (3.3-4.9); ALKALINE PHOSPHATASE 108 IU/L (42-121); ANION GAP 10 (8-16); ASPARTATE AMINO TRANSFERASE 94 IU/L (15-46); BILIRUBIN,INDIRECT 0.1 mg/dl (0-1.1); BILIRUBIN,TOTAL 0.1 mg/dl (0.2-1.3); BLOOD UREA NITROGEN 17 mg/dl (7-20); CARBON DIOXIDE 30 mmol/L (21-31); CHLORIDE 108 mmol/L (97-110); CREATININE 0.98 mg/dl (0.61-1.24); GLUCOSE 121 mg/dl (70-220); MAGNESIUM 2.2 mg/dl (1.7-2.5); POTASSIUM 3.7 mmol/L (3.5-5.1); SODIUM 144 mmol/L (135-144); TOTAL PROTEIN 5.9 g/dl (6.1-8.1)
[2018-03-20 06:03] LABS: CALCIUM 8.4 mg/dl (8.4-10.2)
[2018-03-20 06:22] LABS: DIGOXIN 0.4 ng/ml (1.0-2.0)
[2018-03-20] MEDS: PROPOFOL 100 ML IV ×2 (08:49→21:00)
[2018-03-20] MEDS: LISINOPRIL 5 MG TAB NGT ×2 (08:50→21:27)
[2018-03-20] MEDS: DOCUSATE SODIUM 10 MG/ML (10ML CUP) NGT ×2 (08:51→21:26)
[2018-03-20] MEDS: ASPIRIN 81 MG TAB NGT (08:51)
[2018-03-20] MEDS: PHENOBARBITAL 65 MG INJ IV ×2 (08:51→21:27)
[2018-03-20] MEDS: LEVETIRACETAM 1500 MG (PMX) 100 ML IVPB ×2 (08:52→21:28)
[2018-03-20] MEDS: ENOXAPARIN 40 MG/0.4 ML SYG SC (08:55)
[2018-03-20] MEDS: DIGOXIN 500 MCG INJ IV (13:06)
[2018-03-20] MEDS: ATORVASTATIN 40 MG TAB NGT (21:26)
[2018-03-21] MEDS: PIPER-TAZO 3.375 GM IV (PMX) 100 ML IVPB ×4 (00:36→18:24)
[2018-03-21] MEDS: LORAZEPAM 2 MG INJ IV ×7 (01:02→20:30)
[2018-03-21] MEDS: VANCOMYCIN 1.25 GM in SOD CHLORIDE 0.9% 250 ML IVPB ×3 (03:55→20:29)
[2018-03-21 05:46] LABS: ADD MAN DIFF? NO
[2018-03-21 05:52] LABS: BASOPHIL # 0.1 10^3/ul (0.0-0.1); BASOPHILS % 0.5 % (0.0-2.0); EOSINOPHILS # 0.4 10^3/ul (0.0-0.5); EOSINOPHILS % 4.2 % (0.0-7.0); HEMATOCRIT 33.6 % (42.0-52.0); LYMPHOCYTES # 1.1 10^3/ul (0.8-2.9); LYMPHOCYTES % 12.3 % (15.0-51.0); MEAN CORPUSCULAR HEMOGLOBIN 31.4 pg (29.0-33.0); MEAN CORPUSCULAR HGB CONC 32.7 g/dl (32.0-37.0); MEAN PLATELET VOLUME 11.1 fl (7.4-10.4); MONOCYTE # 0.7 10^3/ul (0.3-0.9); MONOCYTES % 7.6 % (0.0-11.0); NEUTROPHIL # 6.6 10^3/ul (1.6-7.5); NEUTROPHILS % 72.3 % (39.0-77.0); PLATELET COUNT 226 10^3/UL (140-415)
[2018-03-21 05:52] LABS: WHITE BLOOD COUNT 9.1 10^3/ul (4.8-10.8)
[2018-03-21] MEDS: PANTOPRAZOLE 40 MG INJ IV (05:57)
[2018-03-21] MEDS: PHENYTOIN 100 MG INJ IV ×2 (05:57→18:24)
[2018-03-21 06:04] LABS: Arterial COHb 0.3 % (0.0-3.0); MODE VENT - AC
[2018-03-21 06:13] LABS: AADO2 Arterial 83.8 mmHg (7.0-24.0); Allen Test ACCEPTAB; Arterial Base Excess 2.3 mmol/L (-3.0-3); Arterial Blood Gas Oxygen Sat 96.8 mmHG (95.0-98.0); Arterial Fraction of Oxyhgb 96.4 % (93.0-99.0); Arterial HCO3 25.8 mmol/L (22.0-26.0); Arterial MetHb 0.1 % (0.0-1.5); Arterial Total Hemglobin 11.9 g/dl (12.0-18.0); Arterial pCO2 36.2 mmhg (35-45); Blood Gas Mean Airway Pressure 12; Site Right Radial
[2018-03-21 06:18] LABS: ANION GAP 9 (8-16); BLOOD UREA NITROGEN 18 mg/dl (7-20); CALCIUM 8.5 mg/dl (8.4-10.2); CARBON DIOXIDE 30 mmol/L (21-31); CHLORIDE 109 mmol/L (97-110); CREATININE 1.01 mg/dl (0.61-1.24); GLUCOSE 112 mg/dl (70-220); MAGNESIUM 2.3 mg/dl (1.7-2.5); PHOSPHORUS 3.7 mg/dl (2.5-4.9); POTASSIUM 3.9 mmol/L (3.5-5.1); SODIUM 144 mmol/L (135-144)
[2018-03-21] MEDS: PROPOFOL 100 ML IV ×2 (09:00→20:29)
[2018-03-21] MEDS: PHENOBARBITAL 65 MG INJ IV ×2 (09:55→20:47)
[2018-03-21] MEDS: LEVETIRACETAM 1500 MG (PMX) 100 ML IVPB ×2 (09:58→20:42)
[2018-03-21] MEDS: LISINOPRIL 5 MG TAB NGT ×2 (10:00→20:30)
[2018-03-21] MEDS: ASPIRIN 81 MG TAB NGT (10:00)
[2018-03-21] MEDS: DOCUSATE SODIUM 10 MG/ML (10ML CUP) NGT ×2 (10:00→20:46)
[2018-03-21] MEDS: ENOXAPARIN 40 MG/0.4 ML SYG SC (10:02)
[2018-03-21 11:29] LABS: DIGOXIN 0.5 ng/ml (1.0-2.0)
[2018-03-21] MEDS: DIGOXIN 500 MCG INJ IV (12:28)
[2018-03-21] MEDS: ATORVASTATIN 40 MG TAB NGT (20:30)
[2018-03-22] MEDS: PIPER-TAZO 3.375 GM IV (PMX) 100 ML IVPB ×4 (00:12→17:27)
[2018-03-22] MEDS: LORAZEPAM 2 MG INJ IV ×7 (00:12→20:53)
[2018-03-22] MEDS: VANCOMYCIN 1.25 GM in SOD CHLORIDE 0.9% 250 ML IVPB ×3 (03:55→20:48)
[2018-03-22] MEDS: PHENYTOIN 100 MG INJ IV ×2 (06:00→17:27)
[2018-03-22] MEDS: PANTOPRAZOLE 40 MG INJ IV (06:01)
[2018-03-22 06:06] LABS: ADD MAN DIFF? NO
[2018-03-22 06:17] LABS: WHITE BLOOD COUNT 11.2 10^3/ul (4.8-10.8)
[2018-03-22 06:17] LABS: BASOPHIL # 0.1 10^3/ul (0.0-0.1); BASOPHILS % 0.8 % (0.0-2.0); EOSINOPHILS # 0.4 10^3/ul (0.0-0.5); EOSINOPHILS % 3.7 % (0.0-7.0); HEMATOCRIT 32.4 % (42.0-52.0); HEMOGLOBIN 10.7 g/dl (14.0-18.0); LYMPHOCYTES % 9.2 % (15.0-51.0); MEAN CORPUSCULAR HEMOGLOBIN 31.8 pg (29.0-33.0); MEAN CORPUSCULAR VOLUME 96.4 fl (82.0-101.0); MEAN PLATELET VOLUME 11.4 fl (7.4-10.4); MONOCYTE # 0.7 10^3/ul (0.3-0.9); MONOCYTES % 6.1 % (0.0-11.0); NEUTROPHIL # 8.8 10^3/ul (1.6-7.5); NEUTROPHILS % 78.1 % (39.0-77.0); PLATELET COUNT 262 10^3/UL (140-415); RED BLOOD COUNT 3.36 10^6/ul (4.70-6.10); RED CELL DISTRIBUTION WIDTH 14.1 % (11.5-14.5)
[2018-03-22 06:22] LABS: ANION GAP 12 (8-16); BLOOD UREA NITROGEN 18 mg/dl (7-20); CALCIUM 8.3 mg/dl (8.4-10.2); CARBON DIOXIDE 28 mmol/L (21-31); CHLORIDE 108 mmol/L (97-110); CREATININE 0.97 mg/dl (0.61-1.24); GLUCOSE 124 mg/dl (70-220); MAGNESIUM 2.3 mg/dl (1.7-2.5); PHOSPHORUS 3.7 mg/dl (2.5-4.9); POTASSIUM 4.1 mmol/L (3.5-5.1); SODIUM 144 mmol/L (135-144)
[2018-03-22] MEDS: DOCUSATE SODIUM 10 MG/ML (10ML CUP) NGT ×2 (08:35→20:52)
[2018-03-22] MEDS: ENOXAPARIN 40 MG/0.4 ML SYG SC (08:36)
[2018-03-22] MEDS: ASPIRIN 81 MG TAB NGT (08:37)
[2018-03-22] MEDS: PHENOBARBITAL 65 MG INJ IV ×2 (08:37→20:54)
[2018-03-22] MEDS: LISINOPRIL 5 MG TAB NGT ×2 (08:37→20:53)
[2018-03-22] MEDS: LEVETIRACETAM 1500 MG (PMX) 100 ML IVPB ×2 (08:39→20:48)
[2018-03-22] MEDS: PROPOFOL 100 ML IV ×2 (08:39→20:52)
[2018-03-22] MEDS: DIGOXIN 500 MCG INJ IV (13:03)
[2018-03-22 19:12] LABS: VANCOMYCIN,TROUGH 17.6 ug/ml (10.0-20.0)
[2018-03-22] MEDS: ATORVASTATIN 40 MG TAB NGT (20:54)
[2018-03-23] MEDS: PIPER-TAZO 3.375 GM IV (PMX) 100 ML IVPB ×4 (00:34→18:08)
[2018-03-23] MEDS: LORAZEPAM 2 MG INJ IV ×8 (01:19→20:25)
[2018-03-23] MEDS: VANCOMYCIN 1.25 GM in SOD CHLORIDE 0.9% 250 ML IVPB (04:25)
[2018-03-23 05:20] LABS: ADD MAN DIFF? NO
[2018-03-23 05:22] LABS: WHITE BLOOD COUNT 10.3 10^3/ul (4.8-10.8)
[2018-03-23 05:22] LABS: BASOPHIL # 0.1 10^3/ul (0.0-0.1); BASOPHILS % 0.7 % (0.0-2.0); EOSINOPHILS # 0.5 10^3/ul (0.0-0.5); EOSINOPHILS % 4.4 % (0.0-7.0); HEMATOCRIT 30.8 % (42.0-52.0); HEMOGLOBIN 10.1 g/dl (14.0-18.0); LYMPHOCYTES # 1.2 10^3/ul (0.8-2.9); LYMPHOCYTES % 11.3 % (15.0-51.0); MEAN CORPUSCULAR HEMOGLOBIN 31.9 pg (29.0-33.0); MEAN CORPUSCULAR HGB CONC 32.8 g/dl (32.0-37.0); MEAN CORPUSCULAR VOLUME 97.2 fl (82.0-101.0); MEAN PLATELET VOLUME 11.3 fl (7.4-10.4); MONOCYTE # 0.6 10^3/ul (0.3-0.9); MONOCYTES % 5.5 % (0.0-11.0); NEUTROPHIL # 7.8 10^3/ul (1.6-7.5); PLATELET COUNT 279 10^3/UL (140-415); RED BLOOD COUNT 3.17 10^6/ul (4.70-6.10); RED CELL DISTRIBUTION WIDTH 14.1 % (11.5-14.5)
[2018-03-23] MEDS: PHENYTOIN 100 MG INJ IV ×2 (05:55→18:08)
[2018-03-23] MEDS: PANTOPRAZOLE 40 MG INJ IV (05:55)
[2018-03-23 06:18] LABS: ANION GAP 13 (8-16); BLOOD UREA NITROGEN 18 mg/dl (7-20); CALCIUM 8.3 mg/dl (8.4-10.2); CARBON DIOXIDE 27 mmol/L (21-31); CHLORIDE 107 mmol/L (97-110); CREATININE 0.93 mg/dl (0.61-1.24); GLUCOSE 123 mg/dl (70-220); MAGNESIUM 2.2 mg/dl (1.7-2.5); PHOSPHORUS 3.8 mg/dl (2.5-4.9); SODIUM 143 mmol/L (135-144)
[2018-03-23] MEDS: PROPOFOL 100 ML IV ×2 (07:33→21:00)
[2018-03-23] MEDS: LEVETIRACETAM 1500 MG (PMX) 100 ML IVPB ×2 (09:12→21:22)
[2018-03-23] MEDS: DOCUSATE SODIUM 10 MG/ML (10ML CUP) NGT ×2 (09:22→21:13)
[2018-03-23] MEDS: LISINOPRIL 5 MG TAB NGT ×2 (09:22→21:22)
[2018-03-23] MEDS: ASPIRIN 81 MG TAB NGT (09:23)
[2018-03-23] MEDS: ENOXAPARIN 40 MG/0.4 ML SYG SC (09:25)
[2018-03-23] MEDS: PHENOBARBITAL 65 MG INJ IV ×2 (10:37→21:22)
[2018-03-23] MEDS: VANCOMYCIN 1 GM 250 ML IVPB ×2 (12:15→20:15)
[2018-03-23] MEDS: DIGOXIN 500 MCG INJ IV (13:02)
[2018-03-23] MEDS: ATORVASTATIN 40 MG TAB NGT (21:22)
[2018-03-24] MEDS: PIPER-TAZO 3.375 GM IV (PMX) 100 ML IVPB ×3 (00:07→11:48)
[2018-03-24] MEDS: LORAZEPAM 2 MG INJ IV ×2 (04:35→13:09)
[2018-03-24] MEDS: VANCOMYCIN 1 GM 250 ML IVPB ×3 (04:36→20:35)
[2018-03-24 05:29] LABS: ADD MAN DIFF? NO
[2018-03-24] MEDS: PANTOPRAZOLE 40 MG INJ IV (05:43)
[2018-03-24] MEDS: PHENYTOIN 100 MG INJ IV ×2 (05:43→17:48)
[2018-03-24 05:49] LABS: BASOPHIL # 0.1 10^3/ul (0.0-0.1); BASOPHILS % 0.9 % (0.0-2.0); EOSINOPHILS # 0.4 10^3/ul (0.0-0.5); EOSINOPHILS % 4.4 % (0.0-7.0); HEMATOCRIT 30.7 % (42.0-52.0); LYMPHOCYTES # 1.1 10^3/ul (0.8-2.9); LYMPHOCYTES % 11.8 % (15.0-51.0); MEAN CORPUSCULAR HEMOGLOBIN 31.5 pg (29.0-33.0); MEAN CORPUSCULAR HGB CONC 32.6 g/dl (32.0-37.0); MEAN CORPUSCULAR VOLUME 96.8 fl (82.0-101.0); MONOCYTE # 0.5 10^3/ul (0.3-0.9); MONOCYTES % 5.2 % (0.0-11.0); NEUTROPHIL # 6.8 10^3/ul (1.6-7.5); NEUTROPHILS % 75.4 % (39.0-77.0); PLATELET COUNT 322 10^3/UL (140-415); RED BLOOD COUNT 3.17 10^6/ul (4.70-6.10); RED CELL DISTRIBUTION WIDTH 14.1 % (11.5-14.5)
[2018-03-24 06:13] LABS: ANION GAP 10 (8-16); BLOOD UREA NITROGEN 17 mg/dl (7-20); CALCIUM 8.3 mg/dl (8.4-10.2); CARBON DIOXIDE 28 mmol/L (21-31); CHLORIDE 108 mmol/L (97-110); CREATININE 0.86 mg/dl (0.61-1.24); GLUCOSE 115 mg/dl (70-220); MAGNESIUM 2.2 mg/dl (1.7-2.5); POTASSIUM 3.9 mmol/L (3.5-5.1); SODIUM 142 mmol/L (135-144)
[2018-03-24] MEDS: PROPOFOL 100 ML IV ×2 (08:44→21:00)
[2018-03-24] MEDS: LEVETIRACETAM 1500 MG (PMX) 100 ML IVPB ×2 (08:56→20:38)
[2018-03-24] MEDS: DOCUSATE SODIUM 10 MG/ML (10ML CUP) NGT ×2 (08:56→20:36)
[2018-03-24] MEDS: ASPIRIN 81 MG TAB NGT (08:56)
[2018-03-24] MEDS: LISINOPRIL 5 MG TAB NGT ×2 (08:57→20:37)
[2018-03-24] MEDS: PHENOBARBITAL 65 MG INJ IV ×2 (08:58→20:36)
[2018-03-24] MEDS: ENOXAPARIN 40 MG/0.4 ML SYG SC (09:05)
[2018-03-24] MEDS: ALTEPLASE (CATHFLO) 2 MG INJ CATHETER ×2 (09:15→12:57)
[2018-03-24 10:29] LABS: DIGOXIN < 0.4 ng/ml (1.0-2.0)
[2018-03-24 10:40] LABS: PHENYTOIN (DILANTIN) 10.9 ug/ml (10.0-20.0)
[2018-03-24] MEDS: DIGOXIN 500 MCG INJ IV (13:41)
[2018-03-24] MEDS: ATORVASTATIN 40 MG TAB NGT (20:36)
[2018-03-24 20:38] LABS: VANCOMYCIN,TROUGH 12.5 ug/ml (10.0-20.0)
[2018-03-25] MEDS: LORAZEPAM 2 MG INJ IV ×2 (00:45→14:00)
[2018-03-25] MEDS: VANCOMYCIN 1 GM 250 ML IVPB ×3 (04:11→19:36)
[2018-03-25 05:47] LABS: ADD MAN DIFF? NO
[2018-03-25 05:52] LABS: BASOPHIL # 0.1 10^3/ul (0.0-0.1); BASOPHILS % 0.8 % (0.0-2.0); EOSINOPHILS # 0.4 10^3/ul (0.0-0.5); EOSINOPHILS % 4.3 % (0.0-7.0); HEMATOCRIT 32.9 % (42.0-52.0); HEMOGLOBIN 10.8 g/dl (14.0-18.0); LYMPHOCYTES # 0.8 10^3/ul (0.8-2.9); LYMPHOCYTES % 9.5 % (15.0-51.0); MEAN CORPUSCULAR HGB CONC 32.8 g/dl (32.0-37.0); MEAN CORPUSCULAR VOLUME 97.3 fl (82.0-101.0); MONOCYTE # 0.4 10^3/ul (0.3-0.9); MONOCYTES % 4.9 % (0.0-11.0); NEUTROPHIL # 6.9 10^3/ul (1.6-7.5); NEUTROPHILS % 78.2 % (39.0-77.0); PLATELET COUNT 385 10^3/UL (140-415); RED BLOOD COUNT 3.38 10^6/ul (4.70-6.10); RED CELL DISTRIBUTION WIDTH 14.3 % (11.5-14.5)
[2018-03-25 05:52] LABS: WHITE BLOOD COUNT 8.8 10^3/ul (4.8-10.8)
[2018-03-25 06:18] LABS: ALBUMIN 2.8 g/dl (3.3-4.9); ANION GAP 11 (8-16); BLOOD UREA NITROGEN 16 mg/dl (7-20); CALCIUM 8.8 mg/dl (8.4-10.2); CARBON DIOXIDE 28 mmol/L (21-31); CHLORIDE 107 mmol/L (97-110); CREATININE 0.77 mg/dl (0.61-1.24); GLUCOSE 104 mg/dl (70-220); MAGNESIUM 2.1 mg/dl (1.7-2.5); PHOSPHORUS 3.7 mg/dl (2.5-4.9); POTASSIUM 4.4 mmol/L (3.5-5.1); SODIUM 142 mmol/L (135-144)
[2018-03-25] MEDS: PANTOPRAZOLE 40 MG INJ IV (06:44)
[2018-03-25] MEDS: PHENYTOIN 100 MG INJ IV ×2 (06:44→18:31)
[2018-03-25] MEDS: PROPOFOL 100 ML IV ×2 (09:00→21:00)
[2018-03-25] MEDS: DOCUSATE SODIUM 10 MG/ML (10ML CUP) NGT ×2 (09:01→21:25)
[2018-03-25] MEDS: LEVETIRACETAM 1500 MG (PMX) 100 ML IVPB ×2 (09:01→21:36)
[2018-03-25] MEDS: LISINOPRIL 5 MG TAB NGT ×2 (09:02→21:25)
[2018-03-25] MEDS: ASPIRIN 81 MG TAB NGT (09:02)
[2018-03-25] MEDS: ENOXAPARIN 40 MG/0.4 ML SYG SC (09:13)
[2018-03-25] MEDS: PHENOBARBITAL 65 MG INJ IV ×2 (09:57→21:43)
[2018-03-25] MEDS: DIGOXIN 500 MCG INJ IV (12:49)
[2018-03-25] MEDS: ATORVASTATIN 40 MG TAB NGT (21:24)
[2018-03-26] MEDS: VANCOMYCIN 1 GM 250 ML IVPB (03:34)
[2018-03-26 05:08] LABS: ADD MAN DIFF? NO
[2018-03-26 05:12] LABS: WHITE BLOOD COUNT 7.7 10^3/ul (4.8-10.8)
[2018-03-26 05:12] LABS: BASOPHIL # 0.1 10^3/ul (0.0-0.1); BASOPHILS % 0.8 % (0.0-2.0); EOSINOPHILS # 0.3 10^3/ul (0.0-0.5); HEMATOCRIT 30.8 % (42.0-52.0); HEMOGLOBIN 10.1 g/dl (14.0-18.0); LYMPHOCYTES # 0.8 10^3/ul (0.8-2.9); LYMPHOCYTES % 10.3 % (15.0-51.0); MEAN CORPUSCULAR HEMOGLOBIN 31.8 pg (29.0-33.0); MEAN CORPUSCULAR HGB CONC 32.8 g/dl (32.0-37.0); MEAN CORPUSCULAR VOLUME 96.9 fl (82.0-101.0); MEAN PLATELET VOLUME 10.9 fl (7.4-10.4); MONOCYTE # 0.5 10^3/ul (0.3-0.9); MONOCYTES % 6.6 % (0.0-11.0); NEUTROPHIL # 5.8 10^3/ul (1.6-7.5); NEUTROPHILS % 75.8 % (39.0-77.0); PLATELET COUNT 411 10^3/UL (140-415); RED BLOOD COUNT 3.18 10^6/ul (4.70-6.10); RED CELL DISTRIBUTION WIDTH 14.4 % (11.5-14.5)
[2018-03-26] MEDS: PANTOPRAZOLE 40 MG INJ IV (05:19)
[2018-03-26] MEDS: PHENYTOIN 100 MG INJ IV (05:20)
[2018-03-26 05:44] LABS: ALBUMIN 2.8 g/dl (3.3-4.9); ANION GAP 8 (8-16); BLOOD UREA NITROGEN 14 mg/dl (7-20); CALCIUM 8.6 mg/dl (8.4-10.2); CARBON DIOXIDE 31 mmol/L (21-31); CHLORIDE 105 mmol/L (97-110); CREATININE 0.76 mg/dl (0.61-1.24); GLUCOSE 106 mg/dl (70-220); MAGNESIUM 2.1 mg/dl (1.7-2.5); PHOSPHORUS 3.7 mg/dl (2.5-4.9); SODIUM 140 mmol/L (135-144)
[2018-03-26] MEDS: LEVETIRACETAM 1500 MG (PMX) 100 ML IVPB (08:30)
[2018-03-26] MEDS: LISINOPRIL 5 MG TAB NGT (08:31)
[2018-03-26] MEDS: ASPIRIN 81 MG TAB NGT (08:32)
[2018-03-26] MEDS: ENOXAPARIN 40 MG/0.4 ML SYG SC (08:36)
[2018-03-26] MEDS: PHENOBARBITAL 65 MG INJ IV (09:19)
[2018-03-26] MEDS: morphine (DRIP) 100 MG/100 ML 100 ML IV (09:32)
[2018-03-26] MEDS: MIDAZOLAM (DRIP) 50 mg/50 mL 50 ML IV (09:32)
[2018-03-26 10:17] LABS: PHENYTOIN (DILANTIN) 15.6 ug/ml (10.0-20.0)
[2018-03-26 10:23] LABS: DIGOXIN < 0.4 ng/ml (1.0-2.0)
== END 2018-03-26 11:33 | disposition expired | DRG 308 ==
LOC: E/R 02:10 → ICU 04:29
PROC: 5A1955Z Respiratory Ventilation, Greater than 96 Consecutive Hours (ICD-10-PCS; principal; 2018-03-11)
PROC: 02HV33Z Insertion of Infusion Device into Superior Vena Cava, Percutaneous Approach (ICD-10-PCS; 2018-03-18)
PROC: B548ZZA Ultrasonography of Superior Vena Cava, Guidance (ICD-10-PCS; 2018-03-18)
DX: I49.01 Ventricular fibrillation (principal); I50.23 Acute on chronic systolic (congestive) heart failure; J96.01 Acute respiratory failure with hypoxia; R40.20 Unspecified coma; N17.0 Acute kidney failure with tubular necrosis; E87.2 Acidosis; G93.1 Anoxic brain damage, not elsewhere classified; N39.0 Urinary tract infection, site not specified; I25.10 Atherosclerotic heart disease of native coronary artery without angina pectoris; I25.2 Old myocardial infarction; E78.5 Hyperlipidemia, unspecified; D69.6 Thrombocytopenia, unspecified; Z95.5 Presence of coronary angioplasty implant and graft; I25.5 Ischemic cardiomyopathy; I46.9 Cardiac arrest, cause unspecified; R50.9 Fever, unspecified; R40.2432 Glasgow coma scale score 3-8, at arrival to emergency department; I11.0 Hypertensive heart disease with heart failure; R57.0 Cardiogenic shock; Z86.73 Personal history of transient ischemic attack (TIA), and cerebral infarction without residual deficits; G40.901 Epilepsy, unspecified, not intractable, with status epilepticus; Z66 Do not resuscitate
CPT/HCPCS: 36415; 36569; 36600; 70450; 71045; 71275; 74018; 76937; 80048; 80053; 80061; 80069; 80162; 80184; 80185; 80202; 81001; 82150; 82550; 82553; 82803; 82962; 83605; 83690; 83735; 83880; 84100; 84145; 84439; 84443; 84484; 85025; 85384; 85610; 85730; 87040; 87070; 87081; 87086; 89220; 93005; 93306; 93970; 94002; 94003; 94770; 95819; 96365; 96366; 99291-25